=== PATIENT | female | born 1945 | race Native Hawaiian/Other Pacific Islander ===

== ENCOUNTER 2016-10-15 13:42 | Outpatient (CLI) | payer OTHER | END 2016-10-15 19:15 | disposition home or self-care (01) | LOC: MAMMO 13:42 | DX: N63 Unspecified lump in breast (principal) | CPT/HCPCS: G0204-TC ==

== ENCOUNTER 2017-01-16 10:14 | Inpatient (IN) | payer OTHER ==
[~2017-01-16] VITALS: Ht 162.6 cm; Wt 124.3 kg
[2017-01-16] VITALS (12 sets, daily range): BP systolic 94–148; BP diastolic 46–61; TEMP 97.6–99.9; Ht 162.6 cm; Wt 124.3 kg
[2017-01-16] MEDS ORDERED: RANO500T PO (10:49)
[2017-01-16] MEDS ORDERED: PRAS5TAB PO (10:49)
[2017-01-16] MEDS ORDERED: LIPITOR20 MG PO (10:50)
[2017-01-16] MEDS ORDERED: OXYB5TAB56 PO (10:50)
[2017-01-16] MEDS ORDERED: OMEPRAZOLE40 MG OR (10:51)
[2017-01-16] MEDS ORDERED: NITR0.4S2 SL (10:52)
[2017-01-16] MEDS ORDERED: ONDA4TAB3 PO (10:52)
[2017-01-16] MEDS ORDERED: NOVOLOG100 MG/ML SC (10:55)
[2017-01-16] MEDS ORDERED: LANTUS100 MG/ML SC (10:55)
[2017-01-16 11:24] LABS: PLATELET COUNT 132 K/uL (152-353)
[2017-01-16 11:28] LABS: POTASSIUM 4.1 mmol/L (3.6-5.2); SODIUM 130 mmol/L (136-145)
[2017-01-16 11:50] LABS: PARTIAL THROMBOPLASTIN TIME 24.6 SECONDS (24.5-33.6)
--- NOTE | 2017-01-16 21:33 | NUR ---
HOME CPAP HAS BEEN SET UP AT THIS TIME AND IS READY TO BE USED TONIGHT WHEN PATIENT IS READY TO PUT IT ON.
[2017-01-17] VITALS: BP 139/42; TEMP 98.7
--- NOTE | 2017-01-17 01:55 | NUR ---
01/16/2017 AT 2005PT FOUND RESTING WITH EYES CLOSED, AROUSES TO PLASTICS ENGINEERING TEACHER CALLING HER NAME, STATES SHE STILL FEELS LIKE SHE IS GOING TO PASS OUT AND LIGHT HEADED. ALSO THAT SHE FEELS LIKE THIS AT HOME SOMETIMES BUT DOES NOT KNOW WHY. TELEMETRY IN USE, O2 IN USE, NO S/S OF ACUTE DISTRESS. PT FALLS RIGHT BACK ASLEEP, POSSIBLY DROWSY FROM GETTING PHENERGAN EARLIER TODAY. WILL MONITOR AND NOTIFY DR. MENDENHALL. 01/16/2017 [address] MENDENHALL VIA PHONE ABOUT PT, STATES TO MONITOR CLOSELY. NEW ORDER TO D/C PHENERGAN, SOFRAN 4MG IV Q 6 HOURS PRN FOR N/V. T.O. R&V DR. MENDENHALL/SHAYNA MCGUIRE RN.
[2017-01-17 04:00] VITALS: BP 138/42; TEMP 98.4
--- NOTE | 2017-01-17 04:02 | NUR ---
01/16/2017 AT 1915NOTIFIED BY PT LINUX KERNEL DEVELOPER THAT PT IS NOT FEELING WELL. FOUND PT AWAKE AND ORIENTED SITTING UP IN BED, STATES SHE FEELS "LIGHT HEADED", DENIES ANY CHEST PAIN OR OTHER PAIN, DENIES ANY N/V OR SOB. STATES SHE HAS FELT LIKE THIS AT HOME NOT THAT LONG AGO BUT DOES NOT KNOW WHY. VITALS TAKEN AND CHARTED, LUNGS CLEAR, NO ACUTE S/S OF DISTRESS NOTED, RADIAL PULSES INTACT/EQUAL, HEART RATE 88-93 PER TELEMETRY, O2 SAT 97% B/P 125/46, RESP RATE 20 EVEN AND NONLABORED. PT ALSO STATES SHE IS VERY HOT, AC TURNED ON AND PT WILL CONTINUE TO BE MONITORED. WILL RETURN TO CHECK ON PT. ENCOURAGED TO CALL NEEDED OR FOR ANY NEW/WORSENING S/S.
[2017-01-17 05:10] LABS: POTASSIUM 4.3 mmol/L (3.6-5.2)
--- NOTE | 2017-01-17 06:37 | NUR ---
0400FSBS DUE TO BE CHECKED, LAB GOING TO BEDSIDE TO DRAW MORNING LABS, WILL USE MORNING LABS TO SEE WHAT PT'S GLUCOSE IS AT THIS TIME AND THEN NOTIFY DR. ROJAS. 0500GLUCOSE LEVEL ON MORNING LABS STILL NOT BACK, TOOK PT'S FSBS. 0508 FSBS IS 328, WILL CONTACT DR. ROJAS.
[2017-01-17 08:25] VITALS: BP 128/41; TEMP 98.1
[2017-01-17 12:00] VITALS: BP 103/37; TEMP 98.9
[2017-01-17 14:26] LABS: PLATELET COUNT 89 K/uL (152-353)
[2017-01-17 16:00] VITALS: BP 110/36; TEMP 98.8
--- NOTE | 2017-01-17 18:30 | NUR ---
CALLED TO ROOM REGARDING PATIENT STATUS PER FOSTER ORTEGA RN. PT ANXIOUS STATING CAN'T MOVE. DR GIVENS NEARBY INFORMED OF MEDICATIONS PT HAS BEEN GIVEN WHEN ANXIETY ATTACK OCCURRED PREVIOUSLY. VITALS BP 109/41 P 100 R 22 02 SAT 100% 02 2L NC. PT MOVED TO 129 AT THIS TIME
[2017-01-17 20:00] VITALS: BP 100/38; TEMP 98.8
[2017-01-18] VITALS (44 sets, daily range): BP systolic 73–151; BP diastolic 20–80; TEMP 97–98.9
--- NOTE | 2017-01-18 05:30 | NUR ---
DR MENDENHALL HERE CHECKED PT. PT CALLING OUT HELP ME. MORPHINE 2 MG IV FOR C/O PAIN PT RESTLESS MOANING. ACCESS TO RIGHT CHEST PORT A CATH. UNABLE TO DRAW ANYTHING BACK, NO BLOOD RETURN FLUSHED EASILY. HAVING A HARD TIME DRAWING AM LABS.
[2017-01-18 06:44] LABS: PLATELET COUNT 74 K/uL (152-353)
--- NOTE | 2017-01-18 07:00 | NUR ---
PT RESTING A LITTLE QUIETER APPEARS TO BE RESTING EASIER. RESP EVEN. ASSISITED WITH POSITION CHANGE.
--- NOTE | 2017-01-18 07:30 | NUR ---
DR MENDENHALL STOPPED BACK BY HAVING A HARD TIME GETTING AM LABS PT VERY HARD STICK, OBTAIN ORDER TO ACCESS PORT LEFT CHEST WALL. SKIN CLEANED USED HUBBER NEEDLE. OBTAINED ACCESS UNABLE TO DRAW BLOOD, FLUSHED EASILY. REPORT TO RECIEVED ORDER FOR DR SALDAÑA TO PLACE LINE. PT REPOSITIONED IN BED NO URINE OUT PUT NOTED.
--- NOTE | 2017-01-18 07:45 | NUR ---
ASSISTED BY LAB OBTAINED BLOOD. RECIEVED REPORT CRITICAL VALUES CALLED TO DR MENDENHALL.
[2017-01-18 07:48] LABS: POTASSIUM 7.2 mmol/L (3.6-5.2)
--- NOTE | 2017-01-18 08:30 | NUR ---
RECIEVED ORDERS FROM DR MENDENHALL. MEDS AND CONSULT FOR DR SALDAÑA WHO HAS BEEN CALLED TO COME AND PLACE LINE. BLOOD SUGAR ELEVATED PT RECIEVED 10 UNITS SQ NOVOLOG.
--- NOTE | 2017-01-18 09:30 | NUR ---
DR SALDAÑA HERE LINE PLACED RIGHT UPPER CHEST, PT DROWSY NOTED PT DOSEN'T SEEM TO RESPOND WELL THIS MORNING. HELD ALL PO MEDS. HAD TURNED UP NS TO 125 ML HR.
--- NOTE | 2017-01-18 09:50 | NUR ---
RECIEVED ORDER AFTER CHEST XRAY OK TO USE LINE. PT RECIEVED SODIUM BICARB 2 AMPS ORDERED. PT'S FAMILY MEMBERS CALLED FRIEND TO COME AND VISIT. SON'S LIVE OUT OF STATE.
--- NOTE | 2017-01-18 10:00 | NUR ---
MONITOR HAD WENT INTO DIFFERENT HEART RHYTHM REPORTED TO MD OBTAINED EKG EARLIER, STARTED CARDIZEM PUSH 25 MG SLOW PUSHED. HAD PUSHED 1/2 12.5 MG VERY SLOW OVER 5 MIN NOTED HR HAD SLOWED TO 90'S. STOPPED IV PUSH FOR NOW.
--- NOTE | 2017-01-18 10:16 | NUR ---
MONITOR PT NOTED HR HAD DROPPED INTO MID 20'S. CALLED CODE, DR MENDENHALL HERE, CPR STARTED.
--- NOTE | 2017-01-18 10:17 | NUR ---
INCREASED IV FLUIDS TO OPEN 999, EPI I AMP GIVEN ATTEMPT TO FIND PULSE FAINT. CPR IN PROGRESS
--- NOTE | 2017-01-18 10:20 | NUR ---
SECOND DOSE EPI IN FELT FOR PULE. FAINT, DR MENDENHALL AT HEAD OF BED READY FOR INTUBATION.
--- NOTE | 2017-01-18 10:21 | NUR ---
RECIEVED ETOMIDATE [address] SALDAÑA AT BEDSIDE ASSIT. NEEDED.
--- NOTE | 2017-01-18 10:22 | NUR ---
PT INTUBATED 7.5 ET TUBE NOTED SMALL AMOUNT BLEEDING. OVERALL ARLENE OK. PT BAGGED SAT UP. CONTINUES TO HAVE RAPID HR 125 A FIB. WITH LOW B/P FAINT PULSE. PT ALSO RECIEVED 1OO MG OF SUCC. PER DR MENDENHALL.
--- NOTE | 2017-01-18 10:24 | NUR ---
RECIEVED 3RD EPI PULSE GOING AND COMING. LOW THEN 130'S. RESUME CPR NO PULSE FELT. ABLE TO FEEL PULSE WITH CPR IN PROGRESS RIGHT GROIN. PT INTUBATED BAGGED VENT SETUP.
--- NOTE | 2017-01-18 10:26 | NUR ---
PT HAS PULSE AGAIN WEAK. CALLED TO FAMILY MEMBERS INFORMED THEM OF WHAT WAS GOING ON, ASKED TO DO ALL THAT WAS POSSIBLE FOR HIS MOM. PT'S SON ARMAND. CPR RESUMED
--- NOTE | 2017-01-18 10:29 | NUR ---
VASOPRESIN IN ORDERED. UNABLE TO FEEL PULSE APPEARS PEA ON MONITOR. CPR CONTINUES.
--- NOTE | 2017-01-18 10:31 | NUR ---
RECIEVED 1 AMP BICARB ORDERED. CODE CONTINUE
--- NOTE | 2017-01-18 10:34 | NUR ---
MONITOR SHOWING PULSE 166, X RAY HERE FOR CHEST TUBE PLACEMENT. B/P 151/79
--- NOTE | 2017-01-18 10:36 | NUR ---
RECIEVED CARDIZEM 25 MG SLOW IV PUSH.
--- NOTE | 2017-01-18 10:43 | NUR ---
PT RECIEVED BOLUS NS NOREPHRINE DRIP AT 30 ML HR. . VENT WORKING SAT 93% PT BREATHING OVER FEW BREATHS.
--- NOTE | 2017-01-18 10:45 | NUR ---
CARDIZEM DRIP STARTED AT 1O MG HR. MONTIOR CONTINUE TO SHOW A FIB HR 120 LABS DRAWN VIA CENTRAL LINE CONTINUES TO HAVE GOOD BLOOD RETURN.
--- NOTE | 2017-01-18 10:49 | NUR ---
REPORT TO DR ZA THAYER AND ELIUD FLOWERS. RECIEVED ORDER FOR CARDIZEM 20 MG IVP FOR A FIB RVR RATE 130.
--- NOTE | 2017-01-18 11:00 | NUR ---
PT RESPONDED WELL HR DROPPED TO 90'S. DRIP SET AT 10 MG HR. NS AT 250 ML HR. CRITICAL LABS BACK CALLED TO [facility] TO REPORT TO DR MENDENHALL STATED THAT HE KNEW ABOUT LABS. PT RESTING QUIETLY
[2017-01-18 11:03] LABS: SODIUM 136 mmol/L (136-145)
[2017-01-18 11:20] LABS: POTASSIUM 7.6 mmol/L (3.6-5.2)
--- NOTE | 2017-01-18 12:00 | NUR ---
CONTINUE TO MONITOR PT. FRIEND VISITED. INFORMED DR MENDENHALL NO URINE OUTPUT AT PRESENT. IV FLUIDS INFUSING WITHOUT DIFFICULTY. VITAL SIGNS BEGINNING TO IMPROVE A LITTLE.
--- NOTE | 2017-01-18 13:00 | NUR ---
PT BEGINNING TO MOVE ABOUT VERSED DRIP STARTED AT 5 MG HR. APPLIED SOFT WRIST RESTRAINTS PT REACHING UP TO TUBE. REACHING FOR ET TUBE. HR SLOWLY CAME UP 110 CARDIZEM DRIP AT 10 MG HR. NS AT 150 ML HR, NOREPHRINE AT 12 MCG MIN.
--- NOTE | 2017-01-18 13:20 | NUR ---
RECIEVED ORDERS MS RECIEVED 2 AMPS BICARB. HAS RECIEVED 5 AMPS OF BICARB TODAY CALLED TO PHARMACY BY JANA CASAREZ RN PRIOR TO GIVING PT ALSO RECIEVED CALICUM 10 ML 10% SLOW IV PUSH ORDERED.
--- NOTE | 2017-01-18 14:00 | NUR ---
VERSED DRIP UP TO 8 MG HR. PT BITTING TUBE. NS AT 125 INCREASED CARDIZEM DRIP TO 15 MG HR. HR 112. CONTINUES IN A FIB. NOTED SMALL AMOUT URINE IN CARRASCO TUBING. B/P 101/32 P 108. VENT SETTING AC MODE, RATE 14 TV 450 FIO2 60%, PEEP 5.
--- NOTE | 2017-01-18 16:00 | NUR ---
PT RESTING ON VENT. APPEARS TO BE RESTING EASIER, VERSED DRIP AT 10 MG HR NO ATTEMPT TO PULL TUBES SOFE WRIST RESTRAINTS IN PLACE LOOSEN AND PERFORMED ROM. NS AT 125 ML HR LEVOPHED DRIP AT 12 MCG/ MIN AND CARDIZEM AT 15 MG HR. CURRENT B/P 100/31 P 105. FRIENDS VISITED. PT'S SON ON HIS WAY FLYING IN FROM [facility].
--- NOTE | 2017-01-18 17:45 | NUR ---
PT RESTING IN BED. CHECKED PLACEMENT NG TUBE IN PLACE IRRIGATION WITH 60 ML WATER RETURN NOTED OLD BLOOD FROM STOMACH SMALL AMOUNT. FAMILY MEMBERS HERE TO VISIT.
--- NOTE | 2017-01-18 18:24 | NUR ---
LABS DRAWN FOR CPK AND TROP. EMPTIED 40 ML CLOUDY YELLOW URINE. DOCTOR AWARE OUTPUT HAS DROPPED. SAT 100%. NO VENT CHANGES. P 98 CONTINUES IN A FIB. FAMILY SON AND DAUGHTER IN LAW HERE.
--- NOTE | 2017-01-18 18:55 | NUR ---
STUCK PT X 2 LEFT RADIAL WITH OUT GETTING BLOOD GAS. PLACING JUDGE WILL TRY AGAIN IN A FEW MIN.
--- NOTE | 2017-01-18 19:33 | NUR ---
BLOOD GAS OBTAINED LB
[2017-01-19] VITALS (43 sets, daily range): BP systolic 91–152; BP diastolic 37–108; TEMP 99.1–100.5
--- NOTE | 2017-01-19 01:12 | NUR ---
01/19/17 AT 0040FSBS IS <550, SPOKE WITH DR. COLEMAN. STATES TO DRAW STAT GLUCOSE VIA LAB. T.0. R&V. 0100 STAT GLUCOSE DRAWN FROM CENTRAL LINE AND TAKEN TO LAB.
--- NOTE | 2017-01-19 06:21 | NUR ---
01/18/17 AT 2000PT HAS TRIPLE LUMEN CENTRAL LINE TO R UPPER CHEST 18G. NO PROBLEMS NOTED TO SITE.
--- NOTE | 2017-01-19 07:30 | NUR ---
REPORT FROM PM STAFF. PT RESTING IN LF WITH EYES CLOSED,SEDATED ON VENT. ASSIST CONTROL RATE OF 12,O2 55%,TV 450,PEEP5,7.5 ET 25 AT LIP. VERSED DRIP AT 15 MG/HR, CARDIZEM DRIP INFUSING AT A RATE IF 15 MG/HR, LEVOPHED DRIP INFUSING AT A RATE OF 16MCG/MIN/60 ML/HR, NS INFUSING AT 125 ML /HR, INSULIN DRIP INFUSING AT 12 U/HR.CARRASCO TO BSD WITH DK YELLOW URINE. NGT INTACT R NARE TO GRAVITY.SCD INTACT R LEG,LLKBKA.
[2017-01-19 08:04] LABS: POTASSIUM 4.4 mmol/L (3.6-5.2)
--- NOTE | 2017-01-19 08:19 | NUR ---
ABG DRAWN PER RT.O2 INCREASED TO 60% PER RT.
--- NOTE | 2017-01-19 08:24 | NUR ---
LAB CALLED RESULTS BS 594,CREAT4.6,MAG 2.7,CPK 2428,TROP18.74 TO SHAYNA MCGUIRE RN.
[2017-01-19 08:27] LABS: PLATELET COUNT 68 K/uL (152-353)
--- NOTE | 2017-01-19 08:43 | NUR ---
LATESHA GOODEN RN IN,DISCUSSED LABS,ABG & XRAY. WILL REPORT TO DR CARDONA.
--- NOTE | 2017-01-19 10:04 | NUR ---
PT'S SON IN TO VISIT. PT WITH NO CHANGES AT THIS TIME.
--- NOTE | 2017-01-19 10:11 | NUR ---
01/18/17 AT 2240 DECREASED CARDIZEM DRIP FROM 15MCG/HR TO 10MCG/HR, INCREASED LEVOPHED DRIP TO 16MCG/MIN (60ML/HR). AT 2230 B/P WAS 80/44. WILL MONITOR CLOSELY.
--- NOTE | 2017-01-19 10:15 | NUR ---
01/19/17 AT 0215PT'S FACE AND MOUTH CLEANED.
--- NOTE | 2017-01-19 10:16 | NUR ---
01/19/[address] MENDENHALL NOTIFIED OF PT'S CRITICAL BLOOD GLUCOSE LEVEL OF 653 (RESULTS AT 0150), AND ALSO NOTIFIED THAT ER DR ORDERED INSULIN DRIP, DR. MENDENHALL SAID TO GO AHEAD AND HANG THE INSULIN DRIP PER PROTOCOL. T.0. R&V DR. MENDENHALL/SHAYNA MCGUIRE RN.
--- NOTE | 2017-01-19 10:39 | NUR ---
01/19/17 AT 0605CARDIZEM DRIP INCREASED BACK TO 15 MCG/HOUR. WILL MONITOR CLOSELY.
--- NOTE | 2017-01-19 10:40 | NUR ---
DR CARDONA IN TO SEE PT,TALKING WITH PT'S SON.NEW ORDERS TO STOP MICHELLE POP.
--- NOTE | 2017-01-19 10:41 | NUR ---
01/19/17 AT 0414[facility] R INSULIN DRIP HUNG PER ORDER(100ML NS WITH 100 UNITS INSULIN), LOADING DOSE OF 11 UNITS GIVEN AND THEN DRIP STARTED AT 12 UNITS/HOUR. WILL MONITOR BLOOD GLUCOSE CLOSELY.
--- NOTE | 2017-01-19 10:44 | NUR ---
01/19/17 AT 0500PT'S BILATERAL ARMS ELEVATED ON PILLOWS TO HELP WITH EDEMA. L BKA ELEVATED ON PILLOW ALONG WITH R LEG TO KEEP THEM OFF OF THE BED. WIPED PT'S HANDS, ARMS, AND FACE WITH WET WIPE.
--- NOTE | 2017-01-19 10:50 | NUR ---
MICHELLE POP D/Danny'D PER 'S ORDER. FAMILY REMAINS AT BS. DISCUSSED INSERTION OF ARTLINE WITH FAMILY.
--- NOTE | 2017-01-19 10:54 | NUR ---
LATE ENTRY 01/18/[address] MENDENHALL NOTIFIED OF CHANGE IN PT STATUS PREVIOUSLY NOTED. NEW ORDER: TRANSFER PT TO PCU. T.O. R&V DR. MENDENHALL/SHAYNA MCGUIRE RN. 0405PT TAKEN TO PCU 1 AT THIS TIME.
--- NOTE | 2017-01-19 10:58 | NUR ---
LATE ENTRY 01/17/17 AT 2250.STAT GLUCOSE LEVEL DRAWN AT THIS TIME X 3 STICKS BY OUTDOOR STUDIES DIRECTOR AND AMBER CHIANG RN. LAB ASKED TO PLEASE DRAW BLOOD BUT WOULD NOT.
--- NOTE | 2017-01-19 11:01 | NUR ---
LATE ENTRY 01/18/17 AT 0032PT CONTINUES TO LAY IN BED WITH EYES CLOSED, OPENS EYES AT TIMES TO STAFF TALKING TO HER AND ATTEMPTS TO ANSWER STAFF'S QUESTIONS BUT SPEECH IS HARD TO UNDERSTAND EXCEPT FOR A FEW WORDS. PT MOANS OUT AT TIMES AND MUMBLING OUT LOUD. DROWSY AND LETHARGIC. WILL CONTINUE TO MONITOR CLOSELY.
--- NOTE | 2017-01-19 11:06 | NUR ---
LATE ENTRY 01/18/17 AT 0338PT CONTINUES TO MOAN OUT AT TIMES AND STATES "HELP ME", UNABLE TO UNDERSTAND MOST OF PT'S SPEECH. PT SKIN COLOR AND TEMP HAS CHANGED, SKIN COOL AND SHE APPEARS PALE/DUSKY COLORED, UNABLE TO FEEL RADIAL PULSES, NOTED TELEMETRY SHOWS HEART RATE NOW IN 60s, PT DOES NOT OPEN EYES. MANUAL B/P BY ADJUNCT LATIN PROFESSOR IS 86/30. CHARGE NURSE AMBER CHIANG RN NOTIFIED. MARIIA GOT MANUAL B/P OF 60s/30 B/P VERY HARD TO OBTAIN. STAFF WILL STAY WITH PT TO MONITOR AND CALL DR. MENDENHALL.
--- NOTE | 2017-01-19 11:15 | NUR ---
LATE ENTRY 01/18/17 AT 0220PT'S R FOOT VERY COOL TO TOUCH, PT LAYING IN BED WITH EYES CLOSED, OPENS EYES BRIEFLY IN RESPONSE TO HER NAME BEING CALLED LOUDLY AND WHEN STAFF MOVES HER. B/P IS 90/40. DR. MENDENHALL NOTIFIED, NO NEW ORDERS, WILL CONTINUE TO MONITOR CLOSELY. RAILS UP X3, CALL LIGHT IN REACH, BED IN LOW POSITION.
--- NOTE | 2017-01-19 11:30 | NUR ---
GAIL FERGUSON ENGINEERING RESEARCH MANAGER AT ,WILL ATTEMPT INSERTION OF ARTLINE. LAB HERE FOR BLOOD DRAW.
--- NOTE | 2017-01-19 11:53 | NUR ---
ARTLINE INSERTED WITHOUT PROBLEMS PER GAIL FERGUSON CHIEF SERVICE DISPATCHER.
--- NOTE | 2017-01-19 14:33 | NUR ---
PT WITH BRIEFLY ELEVATED HR AT INTERVALS UP TO 160'S & BACK DOWN TO 120'S. CONTINUES WITH LEVOPHED DRIP INFUSING AT 16 MCG/MIN.BP 122/44,O2 SAT 99%.
--- NOTE | 2017-01-19 14:45 | NUR ---
TELEPHONE CONSENT OBTAINED FOR TRANSFUSION OF BLOOD PRODUCTS FROM SON DEMETRIUS RAND.
--- NOTE | 2017-01-19 15:45 | NUR ---
1ST UNIT A+ PRBC STARTED WITHOUT PROBLEMS.
--- NOTE | 2017-01-19 16:00 | NUR ---
REPORTED PT'S HR UP TO 160'S AT TIMES& BACK DOWN TO 120'S TO LATESHA GOODEN RN /BRYON/DR CARDONA. PRBC INFUSING WITHOUT PROBLEMS.
--- NOTE | 2017-01-19 16:10 | NUR ---
LABS CPK 2489 & TROP 19.35 REPORTED TO CYRUS MEREDITH APRN TO REPORT TO DR CARDONA.
--- NOTE | 2017-01-19 18:20 | NUR ---
1ST UNIT PRBC COMPLETED.PT WITH NO REACTION.
--- NOTE | 2017-01-19 18:36 | NUR ---
SECOND UNIT PRBC STARTED. REPORT TO PM STAFF.
[2017-01-19 19:30] LABS: POTASSIUM 3.6 mmol/L (3.6-5.2)
--- NOTE | 2017-01-19 19:31 | NUR ---
Received pt resting in bed on Vent. ET tube 25 at [facility]. TV-450, R-12, P-5, FIO2-60%. Second unit of PRBC's infusing at this time via LCW port. Versed, Levophed, NS infusing via RCW central line. Insulin drip infusing via 20G RFA. No s/s of infiltration noted. SCD to right leg. Kwong to BSD. Pt sedated and intubated. Lungs clear to auscultation. Bed in lowest position. Will continue to monitor.
--- NOTE | 2017-01-19 20:57 | NUR ---
Pt resting in bed on vent. No distress noted at this time. VSS per monitor. Second unit of blood transfusing. Will continue to monitor.
--- NOTE | 2017-01-19 21:20 | NUR ---
Second unit of PRBC's finished transfusing at this time. No s/s of reaction noted.
--- NOTE | 2017-01-19 21:57 | NUR ---
Dr. Floyd called at this time with new orders.
--- NOTE | 2017-01-19 22:00 | NUR ---
Decreased Levophed to 14mcg at this time.
--- NOTE | 2017-01-19 22:54 | NUR ---
NELI and Trop reported to Dr. Floyd at this time.
--- NOTE | 2017-01-19 23:07 | NUR ---
Decreased Levophed to 12mcg at this time.
--- NOTE | 2017-01-19 23:54 | NUR ---
New orders given from Dr. Floyd at this time.
[2017-01-20] VITALS (36 sets, daily range): BP systolic 72–126; BP diastolic 27–76; TEMP 99.1–100.8
--- NOTE | 2017-01-20 | NUR ---
Levophed decreased to 10mcg at this time.
--- NOTE | 2017-01-20 00:40 | NUR ---
Dr. Floyd notified of ABG. Orders given to decrease TV to 375.
--- NOTE | 2017-01-20 01:10 | NUR ---
Decreased Levophed to 9mcg at this time.
--- NOTE | 2017-01-20 02:02 | NUR ---
Decreased Levophed to 8mcg/min at this time.
--- NOTE | 2017-01-20 03:06 | NUR ---
Decreased Levophed to 6mcg/min at this time. Pt resting on moises quietly. No distress noted at this time. VSS per monitor. Will continue to monitor.
--- NOTE | 2017-01-20 03:38 | NUR ---
Repositioned pt. Mouth care given at this time. Will continue to monitor.
--- NOTE | 2017-01-20 04:02 | NUR ---
Increased Levophed to 8mcg/min at this time. B/P 91/42 with a Map of 53. Will continue to monitor.
--- NOTE | 2017-01-20 05:07 | NUR ---
Decreased Levophed to 7mcg/min at this time.
--- NOTE | 2017-01-20 06:06 | NUR ---
Decreased Levophed to 6mcg/min. VSS per monitor. No distress noted. Will continue to monitor.
[2017-01-20 06:40] LABS: POTASSIUM 3.5 mmol/L (3.6-5.2)
--- NOTE | 2017-01-20 07:00 | NUR ---
PT RESTING WITH EYES CLOSED SEDATED ON VENT AC RATE 0F 12,375 TV 375,60% O2, 7.5 ET TUBE,25 AT LIP. CARRASCO TO BSD WITH KAILEY URINE WITH SEDIMENT IN BAG. ART LINE INATACT R RADIAL, RCW TLC INTACT WITH FLUIDS INFUSING WITHOUT PROBLEMS. LCW PORT SALINE LOCKED.IV SALINE LOCK L FA & R FA IV WTH INSULIN DRIP INFUSING WITHOUT PROBLEMS.
--- NOTE | 2017-01-20 08:15 | NUR ---
LABS CALLED TO CYRUS REID APRN TO REPRT TO DR CARDONA.
--- NOTE | 2017-01-20 10:15 | NUR ---
DR CARDONA IN SEE PT.
--- NOTE | 2017-01-20 10:45 | NUR ---
PT EWSTING WITH NO NOTED REACTION TO STIMULI. REMAINS ON VERSED DRIP AT 10 MG/HR.
--- NOTE | 2017-01-20 11:19 | NUR ---
DR CARDONA BACK IN TO SEE PT & TALKING WITH FAMILY ABOUT PT'S CONDITION. D5W STOPPED & NS 1000ML BOLUS STARTED. VERSED DRIP TURNED OFF PER REQUEST DR CARDONA.HE 'WANTS TH EPT TO WAKE UP'.WILL RESEDATE IF NEEDED.
--- NOTE | 2017-01-20 11:30 | NUR ---
CVP LINE CONNECTED TO BROWN PORT IN CL.CVP 12, REPORTED TO LATESHA GOODEN RN/ DR CARDONA.
--- NOTE | 2017-01-20 13:00 | NUR ---
STILL NO RESPONSE FROM PT. RESTING WITH EYES CLOSED.
--- NOTE | 2017-01-20 14:30 | NUR ---
BP 100/58,HR 138,O2 SAT97%. NO NOTED INCREASED ALERTNESS.
[2017-01-20 14:55] LABS: PARTIAL THROMBOPLASTIN TIME 31.5 SECONDS (24.5-33.6)
[2017-01-20 15:22] LABS: PLATELET COUNT 22 K/uL (152-353)
--- NOTE | 2017-01-20 15:45 | NUR ---
CBCB REPORT TO DR DULCE GOODEN RN.
--- NOTE | 2017-01-20 16:33 | NUR ---
REMAINS OFF SEDATION,NO RESPONSE TO VERBAL OR PHYSICAL STIMULI. HR ELEVATED TO 140-S TO 160'S. CALLED TO LATESHA GOODEN RN/BRYON TO BE REPORTED TO DR CARDONA.
--- NOTE | 2017-01-20 16:56 | NUR ---
LATESHA GOODEN RN/SCRIBE IN TO DISCUSS PT'S STAUS. DR CARDONA WANTS PT TO REMAIN OFF SEDATION D/T HER NOT WAKING UP & NO ADDITIONAL MEDS ORDERED.REPORTED ARTLINE NOT WORKING.
--- NOTE | 2017-01-20 17:27 | NUR ---
REPORTED PT'S HR TO DR CARDONA/LATESHA GOODEN RN/BRYON.
[2017-01-20 18:42] LABS: POTASSIUM 4.2 mmol/L (3.6-5.2)
--- NOTE | 2017-01-20 18:45 | NUR ---
REPORT TO YU BURNETT RN.
--- NOTE | 2017-01-20 19:00 | NUR ---
Dr. Floyd notified of pt's HR. New orders given at this time.
--- NOTE | 2017-01-20 19:00 | NUR ---
Received pt resting in bed on vent. No distress noted. HR elevated in the 140's to 160's. Dr. Floyd notified. Orders given. Assessment completed.
--- NOTE | 2017-01-20 20:45 | NUR ---
Levophed drip increased to 9mcg/min at this time.
--- NOTE | 2017-01-20 21:00 | NUR ---
Attempted to reach Dr. Floyd regarding labs. No answer at this time. Will try back.
--- NOTE | 2017-01-20 21:45 | NUR ---
Levophed drip increased to 11mcg/min. Will continue to monitor.
--- NOTE | 2017-01-20 22:00 | NUR ---
No answer from Dr. Floyd at this time.
--- NOTE | 2017-01-20 22:30 | NUR ---
PTT 158. Stopped heparin gtt for 1.5 hours. Will restart at 0000.
--- NOTE | 2017-01-20 22:42 | NUR ---
Dr. Floyd called at this time with orders to restart insulin drip.
--- NOTE | 2017-01-20 23:00 | NUR ---
Insulin drip started at 12 units/hr at this time.
--- NOTE | 2017-01-20 23:45 | NUR ---
Dr. Floyd notified of HR. No orders given at this time.
[2017-01-21] VITALS (35 sets, daily range): BP systolic 72–142; BP diastolic 33–72; TEMP 99.1–101.2
--- NOTE | 2017-01-21 | NUR ---
Restarted heparin drip at 9.7ml/hr at this time per protocol.
--- NOTE | 2017-01-21 00:36 | NUR ---
Dr. Floyd called and ordered stat ABG.
--- NOTE | 2017-01-21 00:41 | NUR ---
Increased Levophed to 13mcg/min. Will continue to monitor.
--- NOTE | 2017-01-21 01:15 | NUR ---
Dr. Floyd notified of ABG and pt bleeding when being suctioned. Orders given to repeat ABG in one hour and stop heparin at this time. Will continue to monitor.
--- NOTE | 2017-01-21 01:19 | NUR ---
VENT CHANGES PER DR. CARDONA. INCREASE RATE TO 15, TITAL VOLUME TO 425 AND PEEP TO 10. ABG IN ONE HOUR.
--- NOTE | 2017-01-21 01:48 | NUR ---
Dr. Floyd notified of pt running fever. Orders given at this time.
--- NOTE | 2017-01-21 02:10 | NUR ---
Suppository given at this time. Pt repositioned in bed and mouth care given. Will continue to monitor.
--- NOTE | 2017-01-21 02:22 | NUR ---
Decreased Levophed drip to 11mcg/min at this time.
--- NOTE | 2017-01-21 02:32 | NUR ---
Dr. Floyd notified of ABG results and Glucose level still being elevated. Orders given to increase TV and leave insulin drip as is. Will continue to monitor.
--- NOTE | 2017-01-21 02:33 | NUR ---
INCREASE TITAL VOLUME TO [address] CARDONA.
--- NOTE | 2017-01-21 04:22 | NUR ---
Decreased Levophed drip to 10mcg/min at this time. Will continue to monitor.
--- NOTE | 2017-01-21 05:00 | NUR ---
Decreased Levophed to 8mcg/min at this time. VSS per monitor. No distress noted at this time. Will continue to monitor.
--- NOTE | 2017-01-21 05:45 | NUR ---
Decreased Levophed to 6mcg/min at this time. Will continue to monitor.
[2017-01-21 06:34] LABS: PLATELET COUNT 26 K/uL (152-353); POTASSIUM 3.7 mmol/L (3.6-5.2)
--- NOTE | 2017-01-21 06:47 | NUR ---
Decreased Levophed to 4mcg/min.
--- NOTE | 2017-01-21 07:00 | NUR ---
RECIEVED REPORT PT RESTING IN BED HOB UP. OFF SEDATION, IV FLUIDS INFUSING ORDERED. PT NOT RESPONDING TO STIMULI. AM ASSESSEMENT DONE
--- NOTE | 2017-01-21 08:40 | NUR ---
BLOOD SUGAR 181, WILL RECHECK INSULIN DRIP TURN DOWN TO 2 UNITS. HR. PT REPOSITIONED IN BED NOTED SKIN BLISTERS TO SACRAL AREA REPOSITIONED OFF, APPLIED SILVADENE ONIT TO BROKEN AREA. FREQUENT MOUTH CARE BROWN COLORED SECRETIONS ORAL, AND ALSO VIA NG TUBE. APPLIED LOW WALL SUCTION TO NG ABD SOFT DISTENDED BOWEL SOUNDS HYPO ACTIVE.
--- NOTE | 2017-01-21 09:00 | NUR ---
RECHECK BLOOD SUGAR 168 INSULIN REMAINS AT TWO UNITS HR VIA DRIP MOUTH CARE. CARRASCO PATENT DRAINING CLOUDY KAILEY URINE. REPORT ABDNORNAL LABS TO VAN, INFORMED THAT DR CARDONA AWARE OF ELEVATED LABS.
--- NOTE | 2017-01-21 10:30 | NUR ---
PT'S SON HERE FOR VISIT. NO RESPONSE FROM PT. NOTED GENERALIZED EDEMA ARMS HANDS, RIGHT LEG. ALSO DEPENDENT EDEMA FLANK THIGHS. SOME WEEPING NOTED ARMS HANDS ELEVATED UP ON PILLOWS.
--- NOTE | 2017-01-21 11:30 | NUR ---
DR CARDONA VISITED CHECKED PT RECIEVED ORDERS VENT SETTING CHANGED PER DR CARDONA INCREASED RATE TO 22 BPM AND TV TO 500, PEEP CONTINUES AT 10. PT'S SON HERE TALKED WITH DR CARDONA ABOUT HIS MOM AND HERE CONDITION, DR CARDONA TALKED ABOUT DNR STATUS. SON WILL TALK TO HIS BROTHER AND LET US KNOW.
--- NOTE | 2017-01-21 12:59 | NUR ---
PHYLLIS REYNOSO INFORMED CORRECTIONAL SERGEANT THAT VENT CHANGES WERE MADE BY DR. CARDONA WITH AN INCREASE IN RATE TO 22 AND AN INCREASE IN TIDAL VOLUME TO 500. CORRECTIONAL SERGEANT DOCUMENTED THESE AT AN ESTMATED TIME OF 12PM.
--- NOTE | 2017-01-21 13:26 | NUR ---
LAST BLOOD SUGAR AT 1305 WAS 147 INSULIN CONTINUES AT 2 UNITS HR. WORKED ON ART LINE GOOD WAVE FORM GOOD RREADING. NOT ABLE TO DRAW BACK BLOOD. ANIYAH FROM [facility] DEPT HERE WORKING ON ART LINE AND READY FOR EEG.
--- NOTE | 2017-01-21 14:08 | NUR ---
CALLED TO DR CARDONA, TO REPORT ABG RESULT. PT HAD BEEN TURNED AND REPOSITIONED HOB UP SUCTION BROWN RED COLORED EMESIS VIA ET TUBE AND NG TUBE SMALL AMOUNT. SUCTIONED MORE FROM MOUTH. ORAL CARE. NOTED IRREGULAR RESP. USING ABD MUSCLES TO BREATH SAT DOWN TO 88-90 IRREGULAR HEART RATE HAS ALSO GONE UP TO 135-145 CONTINUES A FIB.
--- NOTE | 2017-01-21 14:30 | NUR ---
REPOSITIONED HEAD SAT CAME UP TO 94% REPORT SWELLING NECK SHOULDERS. EEG IN PROGRESS. DR CARDONA CALLED BACK RECIEVED REPORT. RECIEVED ORDER TO REPEAT ABG. ALSO REPORT FROWN. ON PT'S FACE WHEN TURNED. APPEARS THAT WHEN PT IS TURNED HR GOES UP 145, B/P DROP A LITTLE SAT DROPS. WILL USE PILLOW TO TURN SIDE TO SIDE.
--- NOTE | 2017-01-21 15:17 | NUR ---
EEG FINISHED REPOSITIONED PT. HR 124 A FIB, RESP 27 MIN SAT 97% B/P 92/36 APPEARS TO BE RESTING EASIER NO FROWNS NOTED. BLOOD SUGAR 142. INSULIN CONTINUES AT 2 UNITS HR.
--- NOTE | 2017-01-21 16:00 | NUR ---
PT'S SON HERE FOR VISIT. BROUGHT PAPERWORK FOR Jeniffer SUTTON RN HERE SPOKW WITH PT'S SON. WILL GIVE PAPERWORK TO DR CARDONA TOMORROW. BLOOD SUGAR 133 INSULIN DRIP TURN DOWN TO 1 UNIT HR. MOUTH CARE SUCTION. BLOOD DRAW VIA CENTRAL LINE FOR CPK AND TROP. GOOD BLOOD RETURN FLUSHES EASILY.
--- NOTE | 2017-01-21 17:00 | NUR ---
BLOOD SUGAR 73, INSULIN DRIP STOPPED. IV FLUIDS CONTINUE. MOUTH CARE DONE. CALLED ABG RESULTS TO DR CARDONA RECIEVED NEW ORDERS, FIO2 INCREASED TO 70%.
--- NOTE | 2017-01-21 18:25 | NUR ---
[facility]ITICAL LABS CALLED TO DR CARDONA. BLOOD SUGAR 140 WILL CHECK IN ONE HR IF NEEDED WILL RESTART INSULIN DRIP. IV HEPLOCK RIGHT FA LEAKING WILL NOT FLUSH IV REMOVED CATH INTACT NO REDNESS AT SITE.
--- NOTE | 2017-01-21 19:00 | NUR ---
Received pt resting on vent. No distress noted at this time. Assessment completed. Insulin drip infusing, amiodarone drip infusing, levophed drip infusing. Kwong to BSD. Rhonchi noted in lung naranjo. Unresponsive. No sedation. Edema noted. Blisters to lower back and buttocks. Afib with RVR noted on telemetry. Bed in low position. Will continue to monitor.
--- NOTE | 2017-01-21 19:24 | NUR ---
BLOOD SUGAR 172 RESTART INSULIN DRIP AT 2 UNITS HR. REPORT TO ONCOMING SHIFT, YU BURNETT RN. HR GOING UP 144 A FIB B/P 84/44. OVER ALL B/P SEEMS TO BE FALLING HR GOING UP. YU TO CALL DR CARDONA.
--- NOTE | 2017-01-21 20:20 | NUR ---
Increased levophed to 13mcg/min.
--- NOTE | 2017-01-21 20:27 | NUR ---
Dr. Floyd notified of HR. Orders given at this time.
--- NOTE | 2017-01-21 21:19 | NUR ---
First dose of Digoxin given at this time. Will continue to monitor. HR 140's to 160's at this time. Dr. Mariel torrez.
--- NOTE | 2017-01-21 22:04 | NUR ---
Decreased Levophed to 11mcg/min at this time. Will continue to monitor.
--- NOTE | 2017-01-21 22:37 | NUR ---
Decreased Levophed to 10mcg/min at this time.
--- NOTE | 2017-01-21 23:31 | NUR ---
Decreased Levophed to 8mcg/min at this time. Will continue to monitor.
[2017-01-22] VITALS (36 sets, daily range): BP systolic 85–123; BP diastolic 40–69; TEMP 97–100
--- NOTE | 2017-01-22 00:02 | NUR ---
Decreased Levophed to 7mcg/min. Will continue to monitor. No distress noted. AFIB on monitor with HR of 134.
--- NOTE | 2017-01-22 02:40 | NUR ---
Levohped drip decreased to 5mcg/min. Second dose of digoxin given at this time, HR 140. B/P 113/57 with Map of 80. Will continue to monitor.
--- NOTE | 2017-01-22 03:20 | NUR ---
Changed gown and washed off pt at this time. Repositioned pt and mouth care given. Pt tolerated well. Will continue to monitor.
--- NOTE | 2017-01-22 03:35 | NUR ---
Levophed down to 4mcg/min. B/P 103/55, Map-69.
--- NOTE | 2017-01-22 05:32 | NUR ---
Levophed down to 3mcg/min at this time. No distress noted. B/P 111/57, Map-78.
[2017-01-22 05:49] LABS: PLATELET COUNT 22 K/uL (152-353)
[2017-01-22 06:15] LABS: POTASSIUM 4.5 mmol/L (3.6-5.2)
--- NOTE | 2017-01-22 06:33 | NUR ---
No distress noted. VSS per monitor. Decreased Levophed to 2mcg/min.
--- NOTE | 2017-01-22 07:27 | NUR ---
RECIEVED REPORT PT RESTING IN BED HOB UP, LUNG SOUNDS IMPROVED. DEPENDENT EDEMA NOTED LOWER EXT, HANDS AND ARMS. HR THIS AM 138 A FIB WILL GIVE DIGOXIN THIS AM. CARRASCO PATENT SMALL AMOUT KAILEY CLOUDY URINE NOTED. IV FLUIDS INFUSING WITHOUT DIFFICULTY.
--- NOTE | 2017-01-22 09:54 | NUR ---
TURNED AND REPOSITION MOUTH CARE DONE RECIEVED AM MEDS. NOTED ORAL SECRETIONS LESS TODAY. RECIEVED DIGOXIN 300MCG ORDERED. HR DOWN FROM 140 TO 125 A FIB. NOTED WATER BLISTER ACROSS BUTTOCKS SKIN SLOUGHING OFF APPLIED SILVADENE PT TURNED SIDE TO SIDE NOTED THAT WHEN TURNED TO RIGHT DECREASED RESP EFFORT. NO RESPOSE TO STIMULI OTHER THAN FROWN WHEN TURNED.
--- NOTE | 2017-01-22 10:25 | NUR ---
DR. RÍOS HERE TO SEE PT.
--- NOTE | 2017-01-22 10:30 | NUR ---
PT'S SON AND PT'S FRIEND HERE TO VISIT.
--- NOTE | 2017-01-22 11:20 | NUR ---
DR RÍOS TALKED WITH SON ABOUT PT'S CONDITION. REPORT NEURO FINDING FROM TEST TODAY. ALSO TALKED ABOUT PT'S CODE STATUS. POOR BRAIN ACTIVITY. RECIEVED ORDERS FOR EEG.
--- NOTE | 2017-01-22 12:20 | NUR ---
DR CARDONA VISITED CHECKED PT NO NEW ORDERS AT THIS TIME. PT WIRED UP BEGAN EEG. BLOOD SUGAR 135 INSULIN DRIP CONTINUES AT [address] CARDONA ABOUT PT'S SKIN WATER BLISTERS ON BUTTOCKS SKIN COMING OFF. APPLIED SILVADENE OINT ORDERED.
--- NOTE | 2017-01-22 13:30 | NUR ---
EEG FINISHED DR RÍOS STOPPED BACK BY, TO LOOK AT READINGS. PT RESTING QUIETLY ONLY RESPONSE TO STIMULI PT FROWNS WHEN TURNED.
--- NOTE | 2017-01-22 14:34 | NUR ---
RESTING QUIETLY RECIEVED ANTIBOTICS ORDERED BLOOD SUGAR 123 INSULIN REMAINS AT 1 UNIT HR. IV FLUID TURNED DOWN TO 50 ML HR PT WT TODAY 280 LBS. VERY LITTLE URINE OUTPUT.
--- NOTE | 2017-01-22 16:06 | NUR ---
REPOSITIONED, REMOVED PILLOWS, SCD'S, PADS AND BLANKETS WT. 274 LBS. NOT MUCH CHANGE VITAL SIGNS ABOUT THE SAME. HOB UP SAT 100%. DRESSING CHANGE TO CENTRAL LINE AND TO PORT A CATH. SITES CLEAN AND DRY NO SIGN OF INFECTION NO REDNESS NO SWELLING.
--- NOTE | 2017-01-22 16:50 | NUR ---
B/P 123/66 P 132. B/P HAS BEEN RUNNING A LITTLE BETTER THIS AFTERNOON. LEVOPHED DRIP TURNED DOWN TO 1 MCG/MIN. WILL MONITOR HOW PT RESPONDS.
--- NOTE | 2017-01-22 18:36 | NUR ---
ART LINE WILL NOT FLUSH, UNABLE TO GET WAVE FORM ON MONITOR. ART LINE DISCONTINUED CATH INTACT NO BLEEDING NO REDNESS NO SWELLING. HOB UP B/P 112/44 P 124 SAT !00%. CONTINUES ON VENT. MOUTH CARE DONE.
--- NOTE | 2017-01-22 18:43 | NUR ---
CHECKED BLOOD SUGAR 88. INSULIN DRIP STOPPED FOR NOW WILL CONTINUE TO MONITOR BLOOD SUGAR.
--- NOTE | 2017-01-22 19:25 | NUR ---
B/P 80/34, 101/43 TURNED LEVOPHED DRIP BACK UP TO 2 MCG/MIN 7.5 ML HR. IV FLUIDS CONTINUE AT 125 ML HR.
--- NOTE | 2017-01-22 20:00 | NUR ---
PT IS A 71 YEAR WHITE FEMALE IN PCU 1 WITH DIAGNOSIS BREAST CANCER, HYPERGLYCEMIA, TACHYCARDIA, AND AMS. PT IS CONNECTED TO VENT. PT WITH IRREGULAR RHYTHM ON CM. PT RECEIVING NS AT 125 ML/HR. PT RECEIVING LEVOPHED AT 2 MCG A MINUTE FOR BP. PT'S IS NOT ON INSULIN DRIP. BLOOD SUGARS BEING CHECKED EVERY HOUR AND OFTEN. SONS WERE IN TO VISIT. SONS ASK ABOUT REPORT OF EEG. ADVISED PT TO SPEAK WITH PHYSICIAN IN THE AM. PT WAS REPOSITIONED IN BED. SCD ON TO PT'S RIGHT LOWER EXT. CARRASCO CATHETAR INTACT. PT WITH DECREASED URINE OUTPUT. PT WITH BLISTERS TO HER BUTTOCKS. PT IS OBESE AND HAS THIRD SPACING. PT IS BEING REPOSITIONED EVERY 2 HOURS. ORAL CARE BEING GIVEN.
[2017-01-23] VITALS (20 sets, daily range): BP systolic 80–112; BP diastolic 38–74; TEMP 97–98.7
--- NOTE | 2017-01-23 00:54 | NUR ---
REPOSITIONED PT . ORAL CARE PROVIDED. PT NONRESPONSIVE.
[2017-01-23 06:32] LABS: POTASSIUM 5.1 mmol/L (3.6-5.2)
--- NOTE | 2017-01-23 07:00 | NUR ---
REPRT FROM PM STAFF. PT WITH EYES CLOSED.NO RESPONSED TO PHYSICAL OR VERBAL STIMULI. REMAINS ON VENT. NO SEDATION. CARRASCO TO BSD WITH KAILEY URINE IN BAG. NGT INTACT R NARE CLAMPED. O2 SAT 93%.
[2017-01-23 08:29] LABS: PLATELET COUNT 21 K/uL (152-353)
--- NOTE | 2017-01-23 09:25 | NUR ---
LABS REPORTED TO DR CARDONA PER NARGIS HOFFMANN LPN/SCROLY. REPORTED HR UP TO 140'S AT INTERVALS AFIB.
--- NOTE | 2017-01-23 10:37 | NUR ---
PT WITH BP CONSISTENTLY IN 80'S SYSTOLIC, LEVOPHED INCREASED TO 5MCG/MIN.PT NON RESPONSIVE ON VENT AC,500 TV,70% O2,PEEP OF 10,RATE 22,7.5 ET TUBE,25 AT LIP.
--- NOTE | 2017-01-23 11:30 | NUR ---
PT'S BP UP TO 107/74,HR 129.
--- NOTE | 2017-01-23 12:00 | NUR ---
PT TURNED & REPOSITIONED,PERICARE FOR LOOSE JELLY BROWN BM. NOTED 1 CM BLISTER INSIDE OF GLUTEAL FOLDS & ON L SIDE,LARGE AREA WITH NO SKIN L BUTTOCK APPROX 10 CM'S.BURST BLISTER,AREA ABOVE ON L BUTTOCK BURST BLISTER 5 CM'S, AREA AT WAIST INSIDE OF ADIPOSE ROLL DARK WIRH 2 SMALL OPEN BLISTERS. MULTIPLE BRUISES FROM NEEDLE STICKS ON ARMS, L KNEE WITH OLD DARK AREA FROM WEARING PROSTHESIS TRYING TO PEEL OFF. NOTED WEEPING OF ARMS FROM EDEMA.
--- NOTE | 2017-01-23 12:47 | NUR ---
DR CARDONA IN TO SEE PT & THEN TALKING WITH FAMILY.FAMILY AGREED WITH DNR. SIGNED PER FAMILY.
--- NOTE | 2017-01-23 12:55 | NUR ---
DNR SIGNED & ON CHART. FAMILY WILL MAKE CALLS TO FAMILY BEFORE CARE IS WITHHELD FROM PT.
--- NOTE | 2017-01-23 13:10 | NUR ---
PT'S SON DEMETRIUS IN AT BS.SON STATES'I'M READY TO TURN THIS VENT OFF,SHE'S SUFFERED ENOUGH'. DR CARDONA & RESPIRATORY NOTIFIED. PT'S SON ARMAND 'DOESN'T WANT TO BE AT BS' WHEN PT EXTUBATED. PT'S SON DEMETRIUS DOES.
--- NOTE | 2017-01-23 13:34 | NUR ---
PT'S SON, DR CARDONA,RT KEISHA MATUTE,NURSES NARGIS HOFFMANN [employer] CARE SALES REPRESENTATIVE, MYSELF& CYRUS PALMER APRN AT BS.PT EXTUBATED PRT RT,NGT REMOVED,ALL DRIPS STOPPED, PT PLACED ON O2 AT 3L/NC.PT WITH AGONAL RESPIRATIONS,HR 118-154 ,O2SATS DOWN FROM 96% TO 82 %.1336 O2 SATS 68% RESP EFFORT DECREASING,HR 102. 1337 O2 SATS 48%,HR 81.1338 O2 SATS 37% HR 70. 1344 HEART MONITOR WITH ASYSTOLE,DR CARDONA CHECKING PT FOR PULSE & LISTENING FOR HEARTBEAT.1346 PT'S SON AT BS WITH PT.
--- NOTE | 2017-01-23 14:15 | NUR ---
[employer] CALLED. SPOKE WITH GLYNN. REPORTED PT'S PASSING.[facility]
--- NOTE | 2017-01-23 14:22 | NUR ---
[facility] NOTIFIED OF NEED TO FORESTRY WORKERS . PT'S GLASSES,CPAP,CLOTHES & MEDS RELEASED TO PT'S SON DEMETRIUS RAND.
--- NOTE | 2017-01-23 14:36 | NUR ---
JULITA FROM [facility] CALLED. DETERMINED THAT PT WAS NOT SUITABLE.
--- NOTE | 2017-01-23 14:45 | NUR ---
ALL DONALD D/C'D,LUNA D/C'D.[facility].
--- NOTE | 2017-01-23 15:09 | NUR ---
[facility] HERE. PT'S BODY & L LEG PROSTHESIS RELEASED TO HOME.
== END 2017-01-23 15:09 | disposition expired ==
LOC: ED 10:14 → MED/SURG 13:15 → ICU 13:15 → MED/SURG 13:15 → ICU 01-18 04:05
PROVIDERS: Emergency Medicine; Internal Medicine
PROC: 5A1955Z Respiratory Ventilation, Greater than 96 Consecutive Hours (ICD-10-PCS; principal; 2017-01-18)
PROC: 0BH18EZ Insertion of Endotracheal Airway into Trachea, Via Natural or Artificial Opening Endoscopic (ICD-10-PCS; 2017-01-18)
PROC: 05H533Z Insertion of Infusion Device into Right Subclavian Vein, Percutaneous Approach (ICD-10-PCS; 2017-01-18)
DX: R07.89 Other chest pain (principal); J18.8 Other pneumonia, unspecified organism; I21.4 Non-ST elevation (NSTEMI) myocardial infarction; R65.21 Severe sepsis with septic shock; K72.00 Acute and subacute hepatic failure without coma; J96.01 Acute respiratory failure with hypoxia; G93.41 Metabolic encephalopathy; D69.3 Immune thrombocytopenic purpura; A04.8 Other specified bacterial intestinal infections; D61.818 Other pancytopenia; M62.82 Rhabdomyolysis; G93.1 Anoxic brain damage, not elsewhere classified; N17.8 Other acute kidney failure; I12.0 Hypertensive chronic kidney disease with stage 5 chronic kidney disease or end stage renal disease; N18.5 Chronic kidney disease, stage 5; I46.9 Cardiac arrest, cause unspecified; E86.0 Dehydration; R53.1 Weakness; C50.912 Malignant neoplasm of unspecified site of left female breast; G47.33 Obstructive sleep apnea (adult) (pediatric); D72.818 Other decreased white blood cell count; D70.8 Other neutropenia; I95.89 Other hypotension; I87.8 Other specified disorders of veins; E10.65 Type 1 diabetes mellitus with hyperglycemia
CPT/HCPCS: 31500; 36415; 36430; 36591; 36600; 51702; 80048; 80053; 81000; 82550; 82553; 82805; 82947; 82948; 82962; 83036; 83605; 83615; 83735; 83880; 84100; 84484; 84550; 85007; 85014; 85018; 85027; 85610; 85730; 86318; 86850; 86900; 86901; 86922; 87040; 87070; 87077; 87205; 93005; 94002; 94003; 94760; 96361; 96365; 96366; 96367; 96372; 96374; 96375; 99284; C1768; J0171; J0282; J0330; J0692; J1160; J1450; J1644; J1815; J2060; J2250; J2270; J2405; J2550; J3490; P9016